=== PATIENT | male | born 1970 | race Caucasian/White ===

== ENCOUNTER 2017-03-27 14:55 | Inpatient (IN) | payer OTHER, MEDICAID ==
[2017-03-27] MEDS ORDERED: NICOTINE 21 MG/24 HR PATCH TD ONE (15:44)
[2017-03-27] MEDS ORDERED: LORazepam 1 MG TAB PO ONE (15:44)
--- NOTE | 2017-03-27 15:51 | EDPHY ---
H & P Smoking Status: Light smoker Time Seen by Provider: 03/27/17 15:35 HPI/ROS: CHIEF COMPLAINT: Suicidal ideation HISTORY OF PRESENT ILLNESS: History of bipolar disorder, arrested last night for DUI, spent the night in detention. No Klonopin her Latuda for the past 2 days. Patient has a previous suicide attempt which he relates as trying to "eat some hemlock. "Patient is brought in by friend today with suicidal ideation which is severe and present for the past 24 hours. He says he wants to overdose on his Klonopin or try "cutting my femoral artery. " Admits to a shot of alcohol today but no drugs. Denies overdose today. REVIEW OF SYSTEMS: Eye: no change in vision ENT: no sore throat Cardiac: no chest pain or syncope Pulmonary: no cough or SOB Abdomen: no vomiting, diarrhea, abdominal pain Musculoskeletal: no back pain Skin: no rash Neuro: no headache Constitutional: no fever : no urinary symptoms A comprehensive 10 point review of systems is otherwise negative aside from elements mentioned in the history of present illness. PAST MEDICAL HISTORY: Includes hypothyroid, asthma, hypertension, hyperlipidemia, hernia repair. Bipolar disorder. Social history: 1 shot of alcohol, tobacco smoker. General Appearance: Alert and conversant, cooperative. Eyes: No scleral icterus. ENT, Mouth: Normal mucous membranes. Respiratory: Normal respiratory effort, breath sounds equal, lungs are clear to auscultation. Cardiovascular: Regular rate and rhythm. Gastrointestinal: Abdomen is soft and non tender. Neurological: Alert and oriented x3. Normally conversant. Face symmetric, normal movement and sensation in all extremities. Skin: No lacerations or abrasions. Musculoskeletal: No peripheral edema and no joint swelling. Psychiatric: Not agitated. Emergency Department course/MDM: Patient is placed on a mental health hold by myself for active suicidal ideation with a plan. Signed out to Lee with plan for psychiatric evaluation; medically cleared. ( Luke Rg) Constitutional: Initial Vital Signs Temperature (C) 37 C 03/27/17 14:58 Heart Rate 104 H 03/27/17 14:58 Respiratory Rate 20 03/27/17 14:58 Blood Pressure 165/108 H 03/27/17 14:58 O2 Sat (%) 94 03/27/17 14:58 O2 Delivery Mode CPAP Allergies/Adverse Reactions: No Known Allergies Allergy (Verified 03/27/17 14:58) Home Medications: Medication Instructions Recorded Albuterol [Proventil Inhaler HFA 1 - 2 puffs IH Q4H PRN 06/07/15 (*)] Ipratropium/Albuterol [Combivent 1 inh IH BID 06/07/15 Respimat Inhal [place](*)] Levothyroxine [Synthroid 200 mcg 200 mcg PO DAILY06 06/07/15 (*)] Levothyroxine [Synthroid 75 mcg 75 mcg PO DAILY06 06/07/15 (*)] Lurasidone HCl [Latuda] 20 mg PO HS 06/07/15 clonazePAM [klonoPIN (*)] 1 mg PO HS 06/07/15 oxyCODONE HCL [Oxycodone HCl] 5 - 15 mg PO Q4 PRN 06/07/15 Atenolol 10mg 10 mg PO DAILY 06/08/15 Medical Decision Making ED Course/Re-evaluation: 2230 care assumed by me from Dr. Rg pending mental health evaluation. 0700 patient signed out to Dr. Camarillo pending mental health evaluation. No issues during my care of this patient overnight. (Drew Howard) Differential Diagnosis: Differential diagnosis considered for depression including functional and major depression, situational depression, medication side effect, drugs and alcohol abuse. (Luke Rg) Other Provider: 11am - Notified that patient has been accepted to 3 inpatient psych. (Laurent Camarillo) - Data Points Laboratory Results: Laboratory Results 03/27/17 16:00 03/27/17 16:00 Medications Given: Discontinued Medications Clonazepam (Klonopin) 1 mg PO EDNOW ONE Stop: 03/27/17 19:52 Last Admin: 03/27/17 20:28 Dose: 1 mg Lorazepam (Ativan) 1 mg PO EDNOW ONE Stop: 03/27/17 15:45 Last Admin: 03/27/17 16:04 Dose: 1 mg Lorazepam (Ativan) 1 mg PO EDNOW ONE Stop: 03/28/17 10:05 Last Admin: 03/28/17 10:07 Dose: 1 mg Lurasidone HCl (Latuda) 20 mg PO EDNOW ONE Stop: 03/27/17 19:52 Last Admin: 03/27/17 20:28 Dose: 20 mg Nicotine (Nicoderm Cq) 21 mg TD EDNOW ONE Stop: 03/27/17 15:45 Last Admin: 03/27/17 16:04 Dose: 21 mg Nicotine (Nicoderm Cq) 21 mg TD EDNOW ONE Stop: 03/28/17 06:19 Last Admin: 03/28/17 06:50 Dose: 21 mg Departure - Departure Disposition: [facility] IP Clinical Impression: Bipolar disorder Qualifiers: Active/Remission status: currently active Current bipolar episode type: depressed Current episode severity: severe Psychotic features: without psychotic features Qualified Code(s): F31.4 - Bipolar disorder, current episode depressed, severe, without psychotic features Condition: Good Instructions: Bipolar Disorder (ED) Referrals: Mike Walden MD [Primary Care Provider] - As per Instructions
[2017-03-27 16:16] LABS: % IMMATURE GRANULYOCYTES 0.1 % (0.0-1.1); ABSOLUTE IMMATURE GRANULOCYTES 0.01 10^3/uL (0.00-0.10); ADD DIFF? NO; ADD MORPH? NO; ADD SCAN? NO; ATYPICAL LYMPHOCYTE FLAG 0 (0-99); FRAGMENT RBC FLAG 0 (0-99); HEMATOCRIT 49.8 % (40.0-51.0); LEFT SHIFT FLG 0 (0-99); LIPEMIA HEMOLYSIS FLAG 90 (0-99); MEAN CELL HEMOGLOBIN 29.7 pg (27.9-34.1); MEAN CELL HEMOGLOBIN CONCENTR. 34.1 g/dL (32.4-36.7); MEAN CELL VOLUME 87.1 fL (81.5-99.8); PLATELET CLUMPS FLAG 0 (0-99); PLATELET COUNT 329 10^3/uL (150-400); RED BLOOD CELL COUNT 5.72 10^6/uL (4.40-6.38); RED CELL DISTRIBUTION WIDTH 12.7 % (11.5-15.2)
[2017-03-27 16:26] LABS: ANION GAP 15 mEq/L (8-16); CALCIUM 10.1 mg/dL (8.5-10.4); CARBON DIOXIDE 23 mEq/l (22-31); CHLORIDE 104 mEq/L (97-110); CREATININE 0.8 mg/dL (0.7-1.3); ETHANOL SERUM < 10 mg/dL (0-10); GLOMERULAR FILTRATION RATE > 60; GLUCOSE 73 mg/dL (70-100); POTASSIUM 4.5 mEq/L (3.5-5.2); SALICYLATE < 1.0 mg/dL (2.0-20.0); SODIUM 142 mEq/L (134-144)
[2017-03-27] MEDS ORDERED: clonazePAM 1 MG TAB PO ONE (19:51)
[2017-03-27] MEDS ORDERED: LURASIDONE HCL 20 MG TAB PO ONE (19:51)
[2017-03-28] MEDS ORDERED: NICOTINE 21 MG/24 HR PATCH TD ONE (06:18)
[2017-03-28] MEDS ORDERED: LORazepam 1 MG TAB PO ONE (10:04)
[2017-03-28] MEDS ORDERED: OXYCODONE/APAP 5/325 TAB ONE (14:03)
[2017-03-28] MEDS ORDERED: OXYCODONE/APAP 5/325 TAB PO ONE (14:05)
[2017-03-28] MEDS ORDERED: ALBUTEROL 200 PUFFS/18 GM MDI IH PRN (16:15)
[2017-03-28] MEDS ORDERED: MAG HYDROX/AL HYDROX/SIMETH 30 ML UDCUP PO PRN (16:30)
[2017-03-28] MEDS ORDERED: MAGNESIUM HYDROXIDE 30 ML UDCUP PO PRN (16:30)
[2017-03-28] MEDS ORDERED: ACETAMINOPHEN 325 MG TAB PO PRN (16:30)
[2017-03-28] MEDS ORDERED: OLANZapine DISINTEGR 10 MG TAB PO PRN (16:30)
[2017-03-28] MEDS ORDERED: ALBUTEROL 60 PUFFS/8 GM MDI IH PRN (16:31)
[2017-03-28] MEDS: FLUTICASONE/SALMETER 250/50MCG DISKUS IH SCH ×3 (17:21→18:48)
--- NOTE | 2017-03-28 17:28 | BCON ---
[f rep st] BEHAVIORAL HEALTH CONSULTATION INTERNAL MEDICINE CONSULTATION DATE OF CONSULTATION: 03/28/2017 REFERRING PHYSICIAN: Jonathan Perales MD REASON FOR REFERRAL: Medical clearance for inpatient behavioral health stay. HISTORY OF PRESENT ILLNESS: This patient came to the [facility] Emergency Department yesterday. He had been arrested the previous night for DUI and spent the night in [facility], and he had suicidal ideation. He was evaluated by the mental health team and admitted for further psychiatric care. Currently, he complains of back pain and reports that he takes occasional oxycodone for it. He also asks about the use of mono-atomic gold, which he says repairs his DNA. Otherwise, he is without any acute complaints. PAST MEDICAL HISTORY: 1. Asthma. 2. Hypothyroidism. 3. Hypertension. 4. Dyslipidemia. 5. Bipolar disorder versus schizoaffective disorder. 6. Obstructive sleep apnea. PAST SURGICAL HISTORY: He has had a hernia repair. MEDICATIONS: 1. Lurasidone. 2. Asenapine. 3. Fluticasone/salmeterol inhaler. 4. Clonazepam. SOCIAL HISTORY: He has a common-law of 20 years. [place]. He is a tobacco smoker. He is disabled for mental health reasons. He uses occasional alcohol and occasional stimulants. FAMILY HISTORY: Noncontributory. REVIEW OF SYSTEMS: He reports that his breathing is okay, but he says he has not used his fluticasone/salmeterol in several days, and would like that to be reinstated. He has back pain as described above. He denies cough or dyspnea currently. He denies chest pain or palpitations. He denies nausea, vomiting, constipation, or diarrhea. He denies weight gain or weight loss. He denies urinary frequency or dysuria. Otherwise, a 10-point review of systems is negative. PHYSICAL EXAM: VITAL SIGNS: Blood pressure is 141/93, heart rate is 98, respiratory rate is 14, oxygen saturation is 93% on room air. Temperature is 36.6 degrees centigrade. His weight is 132 kg, for a body mass index of 40. GENERAL: This is an obese man in bed, wearing no shirt, cooperative and in no acute distress. HEENT: Extraocular movements are intact. Pupils are equal, round, reactive to light. Mucous membranes are moist. Dentition is in good condition. He has a mildly crowded airway, Mallampati class 2. NECK: Supple. HEART: There is a regular rate and rhythm with no murmurs, rubs, or gallops. LUNGS: Clear to auscultation bilaterally. ABDOMEN: Soft, nontender, nondistended with normoactive bowel sounds. EXTREMITIES: There is no cyanosis , clubbing, or edema. NEUROLOGIC: He is alert and oriented x3. Cranial nerves 2-12 are grossly intact. There is no focal weakness, and sensation is intact to light touch. LABORATORY STUDIES: Drawn in the emergency department, CBC was entirely within normal limits. Serum chemistry revealed normal renal function and electrolytes. Toxicology screen in the serum was negative for salicylates, acetaminophen or ethyl alcohol; and in the urine was non-negative for amphetamines, but otherwise negative for substances of abuse. ASSESSMENT/RECOMMENDATIONS: 1. Mental health issues, pending further evaluation and management per Psychiatry and the mental health team. 2. Morbid obesity. Consider avoiding medications that would potentially worsen weight gain though psychosocial stabilization is the first priority at present. 3. Asthma. I have ordered fluticasone/salmeterol inhaler as well as a p.r.n. albuterol. 4. Obstructive sleep apnea. He was advised to have his CPAP machine brought in by his . 5. Tobacco dependence syndrome. Encouraged smoking cessation. 6. Hypothyroidism. Given that he has had shr-xk-qabfzjo mental health issues and is on a large dose of levothyroxine, I have ordered a TSH to be added onto the labs that were drawn yesterday. 7. I see no medical contraindications to this patient's continued stay in the inpatient behavioral health unit or to any psychiatric medications or procedures. Thank you very much for including me in the care of this patient. Please do not hesitate to contact me or the hospitalist service should there be need for further medical evaluation. /[id number]/MODL MTDD
[2017-03-28] MEDS ORDERED: LURASIDONE HCL 20 MG TAB PO SCH (18:45)
[2017-03-28] MEDS: clonazePAM 1 MG TAB PO SCH (18:48)
[2017-03-28] MEDS ORDERED: IPRATROPIUM/ALBUTEROL 4GM MDI IH SCH (21:00)
[2017-03-29] MEDS: LEVOTHYROXINE 200 MCG TAB PO SCH (06:02)
[2017-03-29] MEDS: LEVOTHYROXINE 75 MCG TAB PO SCH (06:02)
[2017-03-29] MEDS: LORazepam 0.5 MG TAB PO PRN (07:42)
[2017-03-29] MEDS: FLUTICASONE/SALMETER 250/50MCG DISKUS IH SCH ×2 (07:42→19:09)
[2017-03-29] MEDS: NICOTINE POLACRILEX 2 MG GUM B PRN ×3 (07:42→12:27)
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
[2017-03-29] MEDS: clonazePAM 1 MG TAB PO SCH (19:06)
[2017-03-29] MEDS: LURASIDONE HCL 20 MG TAB PO SCH (19:07)
[2017-03-30] MEDS: LEVOTHYROXINE 200 MCG TAB PO SCH (05:54)
[2017-03-30] MEDS: LEVOTHYROXINE 75 MCG TAB PO SCH (05:55)
[2017-03-30] MEDS: NICOTINE POLACRILEX 2 MG GUM B PRN ×5 (07:11→19:25)
[2017-03-30] MEDS: FLUTICASONE/SALMETER 250/50MCG DISKUS IH SCH ×2 (10:28→19:43)
[2017-03-30] MEDS: LORazepam 0.5 MG TAB PO PRN (10:28)
--- NOTE | 2017-03-30 14:25 | SOAPPROG ---
SOAP Progress Note Assessment/Plan: Assessment: 46 yo man who had thoughts of suicide after getting arrested for DUI. His alcohol use is likely increasing his sxs of depression. He was also pos for amphetamine in ED without any explanation for reason. 03/30/17 14:21 Plan: 1. Dr. Perales has increased Latuda dose to 40mg daily. 2. Patient understands the effect of alcohol on his mood and mental state, but is not willing to quit drinking. Suggest he talk to [facility] or other therapist to discuss how he manages stress and do some motivational interviewing around his substance use as well as how he takes care of his physical and emotional health. 3. Recommend referral to psych MD as well as therapist, including [facility] if patient is willing to see one. Group therapy might also be helpful as patient is lacking social support. 4. Make patient voluntary. Subjective: Met with patient, reviewed chart and discussed with staff. Patient presents pleasant, but minimally engaged in treatment. He has been asleep most of AM, going to dining room for meals, but not attending groups. He reports anxiety is 4/10 and depression is 5/10, but denies any thoughts, plan or intent to hurt himself or anyone else. He denies any AH/VH, paranoia or delusions. Objective: Vital Signs Temp Pulse Resp BP Pulse Ox 36.3 C 87 14 136/94 H 96 03/30/17 06:00 03/30/17 06:00 03/30/17 06:00 03/30/17 06:00 03/30/17 06:00 MSE: Obese, wearing ripped T-shirt and jeans, pleasant and cooperative. Affect: Euthymic Mood: "OK" TP: Linear TC: Denies any SI/HI, no AH/VH. Insight/ Judgment: Poor - Time Spent With Patient Time Spent With Patient: 15" - Pending Discharge Pending Discharge Within 24 Hours: No Pending Discharge Within 48 Hours: No ICD10 Worksheet Patient Problems: Problems Problem Status Onset Alcohol use disorder, severe, dependence Acute Schizoaffective disorder Acute Postoperative hypoxia Acute - ICD10 Problem Qualifiers (1) Schizoaffective disorder Qualifiers: Schizoaffective disorder type: depressive Qualified Code(s): F25.1 - Schizoaffective disorder, depressive type (2) Alcohol use disorder, severe, dependence
[2017-03-30] MEDS: clonazePAM 1 MG TAB PO SCH (19:42)
[2017-03-30] MEDS: LURASIDONE HCL 20 MG TAB PO SCH (19:43)
[2017-03-31] MEDS: LEVOTHYROXINE 75 MCG TAB PO SCH (06:08)
[2017-03-31] MEDS: LEVOTHYROXINE 200 MCG TAB PO SCH (06:08)
[2017-03-31] MEDS: NICOTINE POLACRILEX 2 MG GUM B PRN ×5 (07:47→18:19)
[2017-03-31] MEDS: FLUTICASONE/SALMETER 250/50MCG DISKUS IH SCH ×2 (08:34→19:11)
[2017-03-31] MEDS: LORazepam 0.5 MG TAB PO PRN ×2 (08:34→16:15)
--- NOTE | 2017-03-31 13:21 | SOAPPROG ---
SOAP Progress Note Assessment/Plan: Assessment: 46 yo man who had thoughts of suicide after getting arrested for DUI. His alcohol use is likely increasing his sxs of depression. He was also pos for amphetamine in ED without any explanation for reason. 03/30/17 14:21 Plan: 1. Dr. Perales has increased Latuda dose to 40mg daily. 2. Patient understands the effect of alcohol on his mood and mental state, but is not willing to quit drinking. Suggest he talk to [facility] or other therapist to discuss how he manages stress and do some motivational interviewing around his substance use as well as how he takes care of his physical and emotional health. 3. Recommend referral to psych MD as well as therapist, including [facility] if patient is willing to see one. Group therapy might also be helpful as patient is lacking social support. 4. Make patient voluntary. 03/31/17 13:15 Plan: 1. CCM - no SE's from increased dose of Latuda 2. Patient able to contract for safety. Denies any plan or intent to hurt himself, but still thinks he has no responsibility for driving drunk even though his breathylizer was .160, he says he was having "a bipolar episode." Subjective: Met with patient and discussed with staff. Patient is sitting up in bed wearing his CPAP. He says he feels "better" today and has a "good" mood. When MD asks about his suicidal thoughts, he denies having any since admission to hospital. However, he denies any responsibility for driving drunk and blames police for "taking away my license" b/c patient refused road side blood test. He says his breathylizer was .160 and yet doesn't recognize that he broke the law. He says it was a "bipolar episode" and is very angry about the consequences. He says he won't be able to "[place] the [place]" to take "a pee test" whenever the court requires it, even though he [facility] access [facility]. He says "things will not be alright" if he "can't fulfill their bullshit," but patient denies he has any plan or intent to hurt himself. Objective: Vital Signs Temp Pulse Resp BP Pulse Ox 36.5 C 84 16 137/86 H 95 03/31/17 06:00 03/31/17 06:00 03/31/17 06:00 03/31/17 06:00 03/31/17 06:00 MSE: Obese, wearing CPAP initially, sitting up in bed. Affect: Irritable Mood : "OK" TP: Illogical and perseverative TC: Denies any AH/VH, denies SI/HI Insight/Judgment: Poor - Time Spent With Patient Time Spent With Patient: 20" - Pending Discharge Pending Discharge Within 24 Hours: No Pending Discharge Within 48 Hours: No ICD10 Worksheet Patient Problems: Problems Problem Status Onset Alcohol use disorder, severe, dependence Acute Schizoaffective disorder Acute Postoperative hypoxia Acute - ICD10 Problem Qualifiers (1) Schizoaffective disorder Qualifiers: Schizoaffective disorder type: depressive Qualified Code(s): F25.1 - Schizoaffective disorder, depressive type (2) Alcohol use disorder, severe, dependence
[2017-03-31] MEDS: LURASIDONE HCL 20 MG TAB PO SCH (19:11)
[2017-03-31] MEDS: clonazePAM 1 MG TAB PO SCH (19:12)
[2017-04-01] MEDS: OLANZapine DISINTEGR 10 MG TAB PO PRN ×2 (05:49→17:29)
[2017-04-01] MEDS: LORazepam 0.5 MG TAB PO PRN ×3 (05:50→17:59)
[2017-04-01] MEDS: LEVOTHYROXINE 75 MCG TAB PO SCH (05:50)
[2017-04-01] MEDS: LEVOTHYROXINE 200 MCG TAB PO SCH (05:50)
[2017-04-01] MEDS: NICOTINE POLACRILEX 2 MG GUM B PRN ×4 (08:57→19:05)
[2017-04-01] MEDS: FLUTICASONE/SALMETER 250/50MCG DISKUS IH SCH ×2 (08:57→19:05)
--- NOTE | 2017-04-01 13:33 | SOAPPROG ---
SOAP Progress Note Assessment/Plan: Assessment: Plan: 04/01/17 13:32 Mood appears to be stable. SI persists contextually. Will CCM, continue d/c planning. Subjective: Pt seen, discussed with staff. Reports feeling "a little better." In bed with CPAP on at 1100. He states he still feels hopeless re: social stressors. Remains suicidal in context of "having no options." Compliant with meds but not most groups. No behavioral issues noted over WE. Objective: Vital Signs Temp Pulse Resp BP Pulse Ox 36.5 C 88 16 139/82 H 94 04/01/17 06:00 04/01/17 06:00 04/01/17 06:00 04/01/17 06:00 04/01/17 06:00 MSE: Calm, coop. Affect is euthymic, stable, approp. Mood is "better." TP linear. TC reveals some grandiose and persecutory thoughts. SI persists though "not while I'm here." - Time Spent With Patient Time Spent With Patient: 25" ICD10 Worksheet Patient Problems: Problems Problem Status Onset Alcohol use disorder, severe, dependence Acute Schizoaffective disorder Acute Postoperative hypoxia Acute
--- NOTE | 2017-04-01 16:01 | SOAPPROG ---
SOAP Progress Note Assessment/Plan: Assessment: Hypothyroidism, with suppressed TSH. Changed levothyroxine from 275 mcg QD to 250 mcg QD. Advise follow-up testing in 4 - 6 weeks. may need further taper. Plan: 04/01/17 16:00 Subjective: Lab review Objective: Vital Signs Temp Pulse Resp BP Pulse Ox 36.5 C 88 16 139/82 H 94 04/01/17 06:00 04/01/17 06:00 04/01/17 06:00 04/01/17 06:00 04/01/17 06:00 ICD10 Worksheet Patient Problems: Problems Problem Status Onset Alcohol use disorder, severe, dependence Acute Schizoaffective disorder Acute Postoperative hypoxia Acute
[2017-04-01] MEDS: LURASIDONE HCL 20 MG TAB PO SCH (18:09)
[2017-04-01] MEDS: clonazePAM 1 MG TAB PO SCH (19:05)
[2017-04-02] MEDS: LEVOTHYROXINE 75 MCG TAB PO SCH (05:57)
[2017-04-02] MEDS: LEVOTHYROXINE 200 MCG TAB PO SCH (06:08)
[2017-04-02] MEDS: LORazepam 0.5 MG TAB PO PRN ×2 (06:44→17:23)
[2017-04-02] MEDS: NICOTINE POLACRILEX 2 MG GUM B PRN (07:47)
[2017-04-02] MEDS: FLUTICASONE/SALMETER 250/50MCG DISKUS IH SCH ×2 (07:47→19:47)
[2017-04-02] MEDS: NICOTINE 21 MG/24 HR PATCH TD PRN (08:31)
[2017-04-02] MEDS: [UNRECOGNIZED DRUG - OTHER] PO SCH (14:51)
--- NOTE | 2017-04-02 16:16 | SOAPPROG ---
SOAP Progress Note Assessment/Plan: Assessment: Plan: 04/01/17 13:32 Mood appears to be stable. SI persists contextually. Will CCM, continue d/c planning. 04/02/17 16:16 Continued improvement. CCM. Subjective: Pt seen, discussed with staff. Reports feeling "pretty good." Appears upbeat, much more positive. Friendly and interactive. Asks to be able to shave. Disavows SI today. Compliant with meds. Slept well. Objective: Vital Signs Temp Pulse Resp BP Pulse Ox 36.4 C 85 16 121/85 H 94 04/02/17 06:00 04/02/17 06:00 04/02/17 06:00 04/02/17 06:00 04/02/17 06:00 MSE: Calm, coop. Affect is much brighter, stable, approp. Mood is "pretty good." TP linear. TC reveals some ongoing paranoid and magical thinking. Denies current SI. - Time Spent With Patient Time Spent With Patient: 15" ICD10 Worksheet Patient Problems: Problems Problem Status Onset Alcohol use disorder, severe, dependence Acute Schizoaffective disorder Acute Postoperative hypoxia Acute
[2017-04-02] MEDS: LURASIDONE HCL 20 MG TAB PO SCH (17:29)
[2017-04-02] MEDS: clonazePAM 1 MG TAB PO SCH (19:47)
[2017-04-03] MEDS: LORazepam 0.5 MG TAB PO PRN ×3 (02:32→19:07)
[2017-04-03] MEDS: NICOTINE POLACRILEX 2 MG GUM B PRN (04:56)
[2017-04-03] MEDS: LEVOTHYROXINE 75 MCG TAB PO SCH (04:56)
[2017-04-03] MEDS: LEVOTHYROXINE 200 MCG TAB PO SCH (04:56)
[2017-04-03] MEDS: NICOTINE 21 MG/24 HR PATCH TD PRN (08:31)
[2017-04-03] MEDS: FLUTICASONE/SALMETER 250/50MCG DISKUS IH SCH ×2 (08:31→21:46)
--- NOTE | 2017-04-03 13:36 | SOAPPROG ---
SOAP Progress Note Assessment/Plan: Assessment: * Hypothyroidism, with suppressed TSH. Changed levothyroxine from 275 mcg QD to 250 mcg QD. Advise follow-up testing in 4 - 6 weeks. may need further taper. * Tinea versicolor. reports prior treatment with Lotrimin. Will order clotrimazole cream. 04/03/17 13:35 Subjective: Rash on R arm and chest. Reports h/o tinea versicolor. Objective: Vital Signs Temp Pulse Resp BP Pulse Ox 36.9 C 85 16 138/86 H 96 04/03/17 06:00 04/03/17 06:00 04/03/17 06:00 04/03/17 06:00 04/03/17 06:00 Physical Exam - Physical Exam General Appearance: WD/WN, alert, no apparent distress, obese Skin: other (Slightly erythematous rash with fine flakey surface on R arm antecubital fossa and patches X 2 on chest) ICD10 Worksheet Patient Problems: Problems Problem Status Onset Alcohol use disorder, severe, dependence Acute Schizoaffective disorder Acute Postoperative hypoxia Acute
[2017-04-03] MEDS: [UNRECOGNIZED DRUG - OTHER] PO SCH (14:26)
[2017-04-03] MEDS: CLOTRIMAZOLE 1% 15 GM CRTUBE TP SCH ×2 (16:13→21:47)
[2017-04-03] MEDS: LURASIDONE HCL 20 MG TAB PO SCH (21:46)
[2017-04-03] MEDS: clonazePAM 1 MG TAB PO SCH (21:46)
[2017-04-04] MEDS: LEVOTHYROXINE 75 MCG TAB PO SCH (06:17)
[2017-04-04] MEDS: LEVOTHYROXINE 200 MCG TAB PO SCH (06:17)
[2017-04-04] MEDS: NICOTINE POLACRILEX 2 MG GUM B PRN (06:42)
[2017-04-04] MEDS: LORazepam 0.5 MG TAB PO PRN ×2 (07:44→14:06)
[2017-04-04] MEDS: NICOTINE 21 MG/24 HR PATCH TD PRN (08:23)
--- NOTE | 2017-04-04 09:13 | SOAPPROG ---
SOAP Progress Note Assessment/Plan: Assessment: Plan: 04/01/17 13:32 Mood appears to be stable. SI persists contextually. Will CCM, continue d/c planning. 04/02/17 16:16 Continued improvement. CCM. 04/04/17 09:15 Continued mix of depressed mood, primitive character issues. Await evaluation from Dr. Joy. Unclear whether pt is able to go to [facility] after d/c or not. Subjective: Pt seen, discussed with staff. Reports feeling anxious about meeting with mother. Family meeting held with pt, myself, his mother and CC. Pt agitated and hostile towards mother, accusing her of not caring about him or helping him. We discussed possible treatment options after d/c including residential. I discussed the case with Dr. Joy who states he will see pt tomorrow. Pt is looking forward to this as they have a previous relationship. Objective: Vital Signs Temp Pulse Resp BP Pulse Ox 36.3 C 83 16 142/83 H 95 04/04/17 06:00 04/04/17 06:00 04/04/17 06:00 04/04/17 06:00 04/04/17 06:00 MSE: Agitated, irritable. Pressured at times. Affect is irritable. Mood is "bad." TP generally linear though perseverative. TC reveals frequent reference to being persecuted by others. States, "That is the only thing that matters. My life is in danger and no one cares." Repeats suicidal threats in specific context of having to go to correction or do urinalyses. O/w he states he would not harm himself. - Time Spent With Patient Time Spent With Patient: 35" ICD10 Worksheet Patient Problems: Problems Problem Status Onset Alcohol use disorder, severe, dependence Acute Schizoaffective disorder Acute Postoperative hypoxia Acute
[2017-04-04] MEDS: [UNRECOGNIZED DRUG - OTHER] PO SCH (14:07)
[2017-04-04] MEDS: CLOTRIMAZOLE 1% 15 GM CRTUBE TP SCH ×2 (14:49→20:47)
[2017-04-04] MEDS: FLUTICASONE/SALMETER 250/50MCG DISKUS IH SCH ×2 (14:50→20:24)
--- NOTE | 2017-04-04 19:58 | SOAPPROG ---
SOAP Progress Note Assessment/Plan: Assessment: Plan: 04/01/17 13:32 Mood appears to be stable. SI persists contextually. Will CCM, continue d/c planning. 04/02/17 16:16 Continued improvement. CCM. 04/04/17 09:15 Continued mix of depressed mood, primitive character issues. Await evaluation from Dr. Joy. Unclear whether pt is able to go to [facility] after d/c or not. 04/04/17 19:57 Calmer today. Await input from Dr. Joy. Subjective: Pt seen, discussed with staff. Reports feeling "OK" today. Less irritable. Engages with me, states he is looking forward to talking with Dr. Jyo later today. CC informs team that family will pay for one month at [facility]. Objective: Vital Signs Temp Pulse Resp BP Pulse Ox 36.3 C 83 16 142/83 H 95 04/04/17 06:00 04/04/17 06:00 04/04/17 06:00 04/04/17 06:00 04/04/17 06:00 MSE: Calm, coop. Affect is constricted, stable, approp. Mood is "OK." TP linear. TC reveals continued fear that he will be killed by unknown persons if he leaves the hospital. - Time Spent With Patient Time Spent With Patient: 15" ICD10 Worksheet Patient Problems: Problems Problem Status Onset Alcohol use disorder, severe, dependence Acute Schizoaffective disorder Acute Postoperative hypoxia Acute
[2017-04-04] MEDS: LURASIDONE HCL 20 MG TAB PO SCH (20:24)
[2017-04-04] MEDS: clonazePAM 1 MG TAB PO SCH (20:24)
[2017-04-05] MEDS: LEVOTHYROXINE 75 MCG TAB PO SCH (05:39)
[2017-04-05] MEDS: LEVOTHYROXINE 200 MCG TAB PO SCH (05:41)
[2017-04-05] MEDS: FLUTICASONE/SALMETER 250/50MCG DISKUS IH SCH ×2 (05:44→20:59)
[2017-04-05] MEDS: [UNRECOGNIZED DRUG - OTHER] PO SCH (08:19)
[2017-04-05] MEDS: NICOTINE 21 MG/24 HR PATCH TD PRN (08:19)
[2017-04-05] MEDS: CLOTRIMAZOLE 1% 15 GM CRTUBE TP SCH ×2 (08:20→21:05)
--- NOTE | 2017-04-05 14:26 | SOAPPROG ---
SOAP Progress Note Assessment/Plan: Assessment: Plan: 04/01/17 13:32 Mood appears to be stable. SI persists contextually. Will CCM, continue d/c planning. 04/02/17 16:16 Continued improvement. CCM. 04/04/17 09:15 Continued mix of depressed mood, primitive character issues. Await evaluation from Dr. Joy. Unclear whether pt is able to go to [facility] after d/c or not. 04/04/17 19:57 Calmer today. Await input from Dr. Joy. 04/05/17 14:28 Stabilizing. CCM. Subjective: Pt seen, discussed with staff. Reports feeling "pretty good." Upbeat about contact with Dr. Joy. States he is willing to go to . Dr. Joy questions need for primary SA treatment first. He states he will review past records and confer with team. Pt remains rather adolescent, regressed. 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 Oppositional with staff at times. Objective: Vital Signs Temp Pulse Resp BP Pulse Ox 36.3 C 80 14 103/66 97 04/05/17 06:00 04/05/17 06:00 04/05/17 06:00 04/05/17 06:00 04/05/17 06:00 MSE: Calm, though easily riled. Affect is euthymic, stable, approp. Mood is "OK." TP linear. TC reveals continued paranoid ideation. Denies current SI. - Time Spent With Patient Time Spent With Patient: 15" ICD10 Worksheet Patient Problems: Problems Problem Status Onset Alcohol use disorder, severe, dependence Acute Schizoaffective disorder Acute Postoperative hypoxia Acute
[2017-04-05] MEDS: LURASIDONE HCL 20 MG TAB PO SCH (20:59)
[2017-04-05] MEDS: clonazePAM 1 MG TAB PO SCH (20:59)
[2017-04-05] MEDS: LORazepam 0.5 MG TAB PO PRN (22:23)
[2017-04-06] MEDS: LEVOTHYROXINE 200 MCG TAB PO SCH (06:02)
[2017-04-06] MEDS: LEVOTHYROXINE 75 MCG TAB PO SCH (06:02)
[2017-04-06] MEDS: LORazepam 0.5 MG TAB PO PRN ×2 (09:00→15:11)
[2017-04-06] MEDS: CLOTRIMAZOLE 1% 15 GM CRTUBE TP SCH ×2 (10:41→20:17)
[2017-04-06] MEDS: FLUTICASONE/SALMETER 250/50MCG DISKUS IH SCH ×2 (10:44→20:15)
[2017-04-06] MEDS: [UNRECOGNIZED DRUG - OTHER] PO SCH (10:44)
--- NOTE | 2017-04-06 12:24 | SOAPPROG ---
SOAP Progress Note Assessment/Plan: Assessment: Plan: 04/01/17 13:32 Mood appears to be stable. SI persists contextually. Will [facility], continue d/c planning. 04/02/17 16:16 Continued improvement. CCM. 04/04/17 09:15 Continued mix of depressed mood, primitive character issues. Await evaluation from Dr. Joy. Unclear whether pt is able to go to after d/c or not. 04/04/17 19:57 Calmer today. Await input from Dr. Joy. 04/05/17 14:28 Stabilizing. CCM. 04/06/17 12:22 Approaching baseline. Will CCM. Await work from . Subjective: Pt seen, discussed with staff. Calm and cooperative, though noted to get upset with another pt when discussing denominational. We discussed his current treatment plan and possible transfer to on Saturday. He is motivated for this. He is resistant to going to primary SA treatment. Refuses to allow me to talk to his sister as he states, "She just wants to take credit for taking care of me. She doesn't care." Objective: Vital Signs Temp Pulse Resp BP Pulse Ox 36.3 C 84 14 128/83 H 94 04/05/17 06:00 04/06/17 06:00 04/06/17 06:00 04/06/17 06:00 04/06/17 06:00 MSE: Calm, coop. Affect is constricted, stable, approp. Mood is "pretty good. " TP linear. TC reveals continued paranoia, IOR's. Denies current SI. - Time Spent With Patient Time Spent With Patient: 15" ICD10 Worksheet Patient Problems: Problems Problem Status Onset Alcohol use disorder, severe, dependence Acute Schizoaffective disorder Acute Postoperative hypoxia Acute
[2017-04-06] MEDS: LURASIDONE HCL 20 MG TAB PO SCH (18:02)
[2017-04-06] MEDS: clonazePAM 1 MG TAB PO SCH (20:15)
[2017-04-07] MEDS: LEVOTHYROXINE 75 MCG TAB PO SCH (05:47)
[2017-04-07] MEDS: LORazepam 0.5 MG TAB PO PRN ×3 (05:47→21:10)
[2017-04-07] MEDS: LEVOTHYROXINE 200 MCG TAB PO SCH (05:48)
[2017-04-07] MEDS: NICOTINE POLACRILEX 2 MG GUM B PRN (05:59)
[2017-04-07] MEDS: FLUTICASONE/SALMETER 250/50MCG DISKUS IH SCH ×2 (08:32→20:40)
[2017-04-07] MEDS: CLOTRIMAZOLE 1% 15 GM CRTUBE TP SCH ×2 (08:32→20:43)
[2017-04-07] MEDS: NICOTINE 21 MG/24 HR PATCH TD PRN (08:33)
[2017-04-07] MEDS ORDERED: LORazepam 1 MG TAB PO ONE (11:42)
[2017-04-07] MEDS: [UNRECOGNIZED DRUG - OTHER] PO SCH ×2 (15:33→21:36)
--- NOTE | 2017-04-07 20:10 | SOAPPROG ---
SOAP Progress Note Assessment/Plan: Assessment: Plan: 04/01/17 13:32 Mood appears to be stable. SI persists contextually. Will [facility], continue d/c planning. 04/02/17 16:16 Continued improvement. CCM. 04/04/17 09:15 Continued mix of depressed mood, primitive character issues. Await evaluation from Dr. Joy. Unclear whether pt is able to go to [facility] after d/c or not. 04/04/17 19:57 Calmer today. Await input from Dr. Joy. 04/05/17 14:28 Stabilizing. CCM. 04/06/17 12:22 Approaching baseline. Will [facility]. Await work from [facility]. 04/07/17 20:11 Doing generally well. Got triggered by staff redirection and regressed. This is very likely an enduring pattern for him and not evidence of acute instability. Will [facility]. Await work from [facility] re: possible transition to . Subjective: Pt seen, discussed with staff. He was pleasant and cooperative, interacting appropriately with me earlier in the morning. About an hour later, he became enraged in group after being redirected for making inappropriate adolescent remarks about his only goal being to smoke a cigarette. He then stormed to his room, baracaded his door and required a show of force and verbal deescalation. He took PO Ativan and was able to calm himself. SHortly thereafter he was able to reenter the milieu and watch football with the group. Objective: Vital Signs Temp Pulse Resp BP Pulse Ox 36.4 C 86 16 138/76 H 94 04/07/17 06:00 04/07/17 06:00 04/07/17 06:00 04/07/17 06:00 04/07/17 06:00 MSE: Initially calm and coop. He was more paranoid, guarded, defensive when he was angry. Kept repeating that he was angry "because just like to set us up to have fun and then cut us down." Unable to explain what he meant by this. - Time Spent With Patient Time Spent With Patient: 25" ICD10 Worksheet Patient Problems: Problems Problem Status Onset Alcohol use disorder, severe, dependence Acute Schizoaffective disorder Acute Postoperative hypoxia Acute
[2017-04-07] MEDS: clonazePAM 1 MG TAB PO SCH (20:41)
[2017-04-07] MEDS: LURASIDONE HCL 20 MG TAB PO SCH (20:41)
[2017-04-08] MEDS: LEVOTHYROXINE 75 MCG TAB PO SCH (05:26)
[2017-04-08] MEDS: LEVOTHYROXINE 200 MCG TAB PO SCH (05:27)
[2017-04-08] MEDS: [UNRECOGNIZED DRUG - OTHER] PO SCH (08:19)
[2017-04-08] MEDS: FLUTICASONE/SALMETER 250/50MCG DISKUS IH SCH ×2 (08:19→20:09)
[2017-04-08] MEDS: LORazepam 0.5 MG TAB PO PRN ×3 (08:31→20:07)
[2017-04-08] MEDS: CLOTRIMAZOLE 1% 15 GM CRTUBE TP SCH ×2 (13:17→20:17)
[2017-04-08] MEDS: LURASIDONE HCL 20 MG TAB PO SCH (20:05)
[2017-04-08] MEDS: clonazePAM 1 MG TAB PO SCH (20:05)
[2017-04-09] MEDS: LEVOTHYROXINE 75 MCG TAB PO SCH (06:16)
[2017-04-09] MEDS: LEVOTHYROXINE 200 MCG TAB PO SCH (06:17)
[2017-04-09] MEDS: FLUTICASONE/SALMETER 250/50MCG DISKUS IH SCH ×2 (08:19→18:29)
[2017-04-09] MEDS: [UNRECOGNIZED DRUG - OTHER] PO SCH (08:22)
[2017-04-09] MEDS: NICOTINE 21 MG/24 HR PATCH TD PRN (08:33)
[2017-04-09] MEDS: CLOTRIMAZOLE 1% 15 GM CRTUBE TP SCH ×2 (09:06→18:33)
[2017-04-09] MEDS: LORazepam 0.5 MG TAB PO PRN ×3 (09:41→18:32)
--- NOTE | 2017-04-09 10:46 | SOAPPROG ---
MARKOS Progress Note Assessment/Plan: Assessment: Schizoaffective (v Schizophrenia) Doing reasonably well on current medications. No changes today. Plan: Work on outpatient placement. 04/09/17 10:51 Subjective: "So far, so good." "I could fast today." "I talk to myself from time to time." Reports he slept "okay" last night. 9.5 hours per sleep record. Using CPAP at night. Appetite, concentration, energy all good. Denies being bothered by internal stimuli today. Objective: Vital Signs Temp Pulse Resp BP Pulse Ox 36.9 C 89 12 137/87 H 93 04/09/17 06:00 04/09/17 06:00 04/09/17 06:00 04/09/17 06:00 04/09/17 06:00 Medications Generic Name Dose Route Start Last Admin Trade Name Freq PRN Reason Stop Dose Admin Clonazepam 1 mg 03/28/17 18:45 04/08/17 20:05 Klonopin PO 09/24/17 18:44 1 mg HS RAFAEL Clotrimazole 1 yun 04/03/17 13:45 04/09/17 09:06 Lotrimin 1% TP 05/03/17 13:44 Not Given BID RAFAEL Levothyroxine Sodium 200 mcg 03/29/17 06:00 04/09/17 06:17 Synthroid PO 09/25/17 05:59 200 mcg DAILY06 RAFAEL Levothyroxine Sodium 50 mcg 04/01/17 15:59 04/09/17 06:16 Synthroid PO 09/25/17 05:59 50 mcg DAILY06 RAFAEL Lurasidone HCl 40 mg 03/29/17 10:17 04/08/17 20:05 Latuda PO 09/24/17 18:44 40 mg HS RAFAEL Fluticasone/Salmeterol 1 puffs 03/28/17 15:45 04/09/17 08:19 Advair IH 09/24/17 15:44 1 puffs BID RAFAEL MSE Awake, alert, lying in bed but gets up to speak with me. Speech not pressured nor rapid this AM Linear thoughts, poverty of spontaneous thoughts Lacks insight, lacks judgment ICD10 Worksheet Patient Problems: Problems Problem Status Onset Alcohol use disorder, severe, dependence Acute Schizoaffective disorder Acute Postoperative hypoxia Acute
[2017-04-09] MEDS ORDERED: NON-FORMULARY NEW DRUG PO PRN ×3 (10:49→14:45)
[2017-04-09] MEDS ORDERED: [UNRECOGNIZED DRUG - OTHER] PO PRN (11:29)
[2017-04-09] MEDS: clonazePAM 1 MG TAB PO SCH (18:29)
[2017-04-09] MEDS: [UNRECOGNIZED DRUG - OTHER] PO PRN (18:29)
[2017-04-09] MEDS: LURASIDONE HCL 20 MG TAB PO SCH (18:29)
[2017-04-10] MEDS: LEVOTHYROXINE 200 MCG TAB PO SCH (05:45)
[2017-04-10] MEDS: LEVOTHYROXINE 75 MCG TAB PO SCH (05:46)
[2017-04-10 05:54] VITALS: TEMP 97.8
[2017-04-10] MEDS: [UNRECOGNIZED DRUG - OTHER] PO PRN ×3 (06:15→19:21)
[2017-04-10] MEDS: NICOTINE 21 MG/24 HR PATCH TD PRN (06:37)
[2017-04-10] MEDS: clonazePAM 1 MG TAB PO SCH (07:20)
[2017-04-10] MEDS: FLUTICASONE/SALMETER 250/50MCG DISKUS IH SCH ×2 (08:45→19:29)
[2017-04-10] MEDS: CLOTRIMAZOLE 1% 15 GM CRTUBE TP SCH ×2 (08:55→19:28)
[2017-04-10] MEDS: LORazepam 0.5 MG TAB PO PRN ×3 (09:52→19:24)
--- NOTE | 2017-04-10 14:09 | SOAPPROG ---
SOAP Progress Note Assessment/Plan: Assessment: Plan: 04/01/17 13:32 Mood appears to be stable. SI persists contextually. Will [facility]CM, continue d/c planning. 04/02/17 16:16 Continued improvement. CCM. 04/04/17 09:15 Continued mix of depressed mood, primitive character issues. Await evaluation from Dr. Joy. Unclear whether pt is able to go to [facility] after d/c or not. 04/04/17 19:57 Calmer today. Await input from Dr. Joy. 04/05/17 14:28 Stabilizing. CCM. 04/06/17 12:22 Approaching baseline. Will [facility]CM. Await work from [facility]. 04/07/17 20:11 Doing generally well. Got triggered by staff redirection and regressed. This is very likely an enduring pattern for him and not evidence of acute instability. Will [facility]. Await work from [facility] re: possible transition to . 04/10/17 14:09 Improved. CCM. Likely d/c tomorrow to . Subjective: Pt seen, discussed with staff. Pleasant and interactive. States he is looking forward to going to . Dr. Joy indicates that he will be able to go tomorrow morning. Pt remains compliant with meds. No further agitated behaviors. Objective: Vital Signs Temp Pulse Resp BP Pulse Ox 36.6 C 81 12 140/81 H 97 04/10/17 05:53 04/10/17 05:53 04/10/17 05:53 04/10/17 05:53 04/10/17 05:53 MSE: Calm, coop. Affect is euthymic, stable, approp. Mood is "good." TP linear. TC reveals no mention of paranoid delusions. Denies current SI. - Time Spent With Patient Time Spent With Patient: 15" ICD10 Worksheet Patient Problems: Problems Problem Status Onset Alcohol use disorder, severe, dependence Acute Schizoaffective disorder Acute Postoperative hypoxia Acute
[2017-04-10] MEDS: LURASIDONE HCL 20 MG TAB PO SCH (19:19)
[2017-04-11] MEDS: LEVOTHYROXINE 200 MCG TAB PO SCH (05:19)
[2017-04-11] MEDS: [UNRECOGNIZED DRUG - OTHER] PO PRN (05:19)
[2017-04-11] MEDS: LEVOTHYROXINE 75 MCG TAB PO SCH (05:19)
[2017-04-11] MEDS: NICOTINE POLACRILEX 2 MG GUM B PRN ×2 (05:27→06:20)
[2017-04-11] MEDS: LORazepam 0.5 MG TAB PO PRN ×2 (06:22→10:10)
[2017-04-11 07:57] VITALS: BP 132/90; PULSE 88; RESP 14; O2SAT 96
[2017-04-11] MEDS: FLUTICASONE/SALMETER 250/50MCG DISKUS IH SCH (08:31)
[2017-04-11] MEDS: CLOTRIMAZOLE 1% 15 GM CRTUBE TP SCH (08:33)
--- NOTE | 2017-04-11 18:52 | BDS ---
[f rep st] BEHAVIORAL HEALTH DISCHARGE SUMMARY REASON FOR ADMISSION: Patient is a 46-year-old male with a history of schizoaffective diso rder. He was admitted from the emergency department due to suicidal ideation. He had been recently released from senior care where he had stayed for a brief amount of time after having been charged with a DU I. He apparently had been pulled over for speeding, passed a Breathalyzer but refused a urinalysis, and was arrested for refusal. He was acting erratically and they had suspected that he was intoxicat ed in some way. After he was released, he stated he was going to kill himself and thus, he was broug ht directly to the emergency department. A full description of the events preceding admission can be found in his admission history dated 03/29/2017. ADMITTING DIAGNOSES: 1. Schizoaffective disorder, chronic with acute exacerbation. 2. Amphetamine use disorder, severity unknown. 3. Alcohol use disorder, severity unknown. 4. Chronic illness. 5. Legal problems. ADMITTING PHYSICAL EXAMINATION: Performed by Dr. Car Brewer reveals no acute physical findings. ADMISSION LABORATORY: CBC is normal. Serum chemistries are normal. TSH is low at 0.148. Urine terry g screen is positive for amphetamines. HOSPITAL COURSE: Patient [facility] on an M1 hold. He was initially calm, cooperative and participated actively in interviews. He is somewhat regresse d and adolescent in his interactions, however, and was prone to rather dramatic statements regarding how hopeless his life was and how suicidal he was, if he had to do any rehab or urinalyses or [facility]. He stated that if these were not the case, that he would be fine, but if he did have any conseq uences of his actions, that he would be imminently suicidal. He was in the milieu at a time when the re was a number of other younger males who were psychotic and/or manic. He seemed to take pleasure i n antagonizing them, specifically within their delusional systems and causing them to become more oscar tated. He was redirected from this on numerous occasions. He, himself, would become agitated on occ asions as well if challenged on his delusional systems. His delusions centered on being tormented by unknown persons in the community who wanted to kill him, typically by messing with his car. He was insistent that he was unsafe in the community, and that if he was released back to the community that he would kill himself before these other unknown persons could do it for him. Despite this, he was willing to participate in discharge planning, as long as [place] did [place] come in for drug tests or other required treatments. The patient voiced a desire to go to [facility] and Dr. Joy was notified. He evaluated t he patient on 2 occasions, and felt he was appropriate for their program. A discussion was held with the patient and his mother in a family meeting as to whether he would benefit from primary substance abuse treatment, to which he was very resistant. Dr. Joy had the same question, but it was fel t that he could benefit from stabilization of his psychiatric illness 1st, and then we could raise th e question later in regard to substance abuse treatment. This could likely be done as part of his co urt process on an outpatient basis. While in the hospital, we evaluated his overall medication regimen. He admitted to being noncomplian t with his previous medications due to not liking particular side effects of various psychotropic med icines. He stated that the Latuda he is taking currently was agreeable to him, and he was also agree able to increasing from 20 to 40 mg. This was done and he tolerated medications well with no side ef fects. The patient's hospital course was uncomplicated. He participated in most groups and though, due to h is antagonism, he had to be excused from some, was generally appropriate in his behaviors. He was co operative with all medications. CONDITION ON DISCHARGE: Stable. His affect was euthymic, stable and appropriate. He was cooperativ e with medications, was forward thinking and cheerful, and was happy to go to [facility]. DISCHARGE MEDICATIONS: Clonazepam 1 mg p.o. q.h.s., levothyroxine 275 mcg daily, albuterol inhaler 2 puffs q.4 hours p.r.n., Lotrimin cream as needed b.i.d., Advair inhaler 1 puff twice daily, and Latu da 40 mg q.h.s. DISCHARGE DIAGNOSES: 1. Schizoaffective disorder, bipolar type, chronic with acute exacerbation. 2. Amphetamine use disorder, moderate. 3. Alcohol use disorder, moderate. 4. Chronic illness. 5. Legal problems. DISPOSITION: Patient left the hospital with Dr. Joy to go to [facility]. LEGAL COURSE: Patient was converted to voluntary status at the expiration of his M1 hold. /[id number]/MODL
== END 2017-04-11 10:50 | DRG 885 ==
LOC: BBEH 03-28 14:28
PROVIDERS: ADMIT Psychiatry & Neurology Psychiatry; ATTEND Psychiatry & Neurology Psychiatry
DX: F25.0 Schizoaffective disorder, bipolar type (principal); F15.90 Other stimulant use, unspecified, uncomplicated; T43.506A Underdosing of unspecified antipsychotics and neuroleptics, initial encounter; E03.9 Hypothyroidism, unspecified; I10 Essential (primary) hypertension; E78.5 Hyperlipidemia, unspecified; G47.33 Obstructive sleep apnea (adult) (pediatric); F17.200 Nicotine dependence, unspecified, uncomplicated; E11.9 Type 2 diabetes mellitus without complications; E66.01 Morbid (severe) obesity due to excess calories; J44.9 Chronic obstructive pulmonary disease, unspecified; Z72.89 Other problems related to lifestyle
CPT/HCPCS: 80305; G0480

== ENCOUNTER 2017-11-12 12:54 | Observation (INO) | payer OTHER, MEDICAID ==
[2017-11-12] MEDS ORDERED: ONDANSETRON DISINTEGRATING 4 MG TAB PO ONE (13:03)
--- NOTE | 2017-11-12 13:48 | EDPHY ---
H & P Stated Complaint: gen abd pain N/V/D x 2 days ate sushi-also has new itchy rash throughout Time Seen by Provider: 11/12/17 13:48 HPI/ROS: CHIEF COMPLAINT: Food poisoning HISTORY OF PRESENT ILLNESS: This is a 47-year-old male with multiple medical problems including a history of reactive airways, and tobacco abuse and anxiety. He presents with nausea, vomiting, and diarrhea that has been present for almost 2 days now. He last had diarrhea shortly after he arrived in the emergency department. He states that his stool is pink and watery. He has diffuse abdominal pain. He has not been aware of fever. He was able to keep down a Klonopin this morning. He believes that this illness is related to sushi that he ate. REVIEW OF SYSTEMS: A ten point review of systems was performed and is negative with the exception of the items mentioned in the HPI. Past medical history: 1. Reactive airway disease 2. Hypothyroidism 3. Hyperlipidemia 4. Hypertension 5. Bipolar disease 6. Esophagitis 7. Anxiety 8. Sleep apnea 9. Obesity Past surgical history: 1. Hernia repair 2. Leg fracture Social history: He is here with his . He continues to smoke 1 pack of cigarettes daily. He drinks alcohol rarely. General Appearance: Alert. Vital signs reviewed. Eyes: Pupils equal and round, no conjunctival injection, no discharge. Anicteric. ENT, Mouth: Mucous membranes are moist, no oropharyngeal erythema or edema. Neck: No lymphadenopathy, supple. Respiratory: Lungs with distant breath sounds. Cardiovascular: Tachycardic; no murmur, rub, or gallop. Gastrointestinal: Abdomen is obese, soft and mildly diffusely tender without guarding, no masses or organomegaly appreciated but body habitus makes the exam somewhat difficult, bowel sounds normal. Skin: Warm and dry, normal color. He has an erythematous macular rash involving his trunk, areas of his arms and legs. There is some excoriations noted. No urticaria. Back: Nontender to palpation over the thoracolumbar spine. No CVAT. Extremities: No lower extremity edema, no calf tenderness or swelling. Neurological: Alert and oriented. Moving all four extremities easily and equally. Psychiatric: Normal affect. - Personal History Tetanus Vaccine Date: < 10 years - Medical/Surgical History Hx Asthma: Yes Hx Chronic Respiratory Disease: No Hx Diabetes: No Hx Cardiac Disease: No Hx Renal Disease: No Hx Cirrhosis: No Hx Alcoholism: No Hx HIV/AIDS: No Hx Splenectomy or Spleen Trauma: No Other PMH: Hypothyroidism, Asthma, Hyperlipidemia, HTN, Bipolar. hernia repair , ESOPHAGITIS, sleep apnea, obese, anxiety,smoker - Social History Smoking Status: Light smoker Constitutional: Initial Vital Signs Temperature (C) 37.5 C 11/12/17 13:00 Heart Rate 138 H 11/12/17 13:00 Respiratory Rate 18 11/12/17 13:00 Blood Pressure 158/97 H 11/12/17 13:00 O2 Sat (%) 95 11/12/17 13:00 O2 Delivery Mode Room Air Allergies/Adverse Reactions: No Known Allergies Allergy (Verified 03/27/17 14:58) Home Medications: Medication Instructions Recorded Levothyroxine [Synthroid 200 mcg 200 mcg PO DAILY06 06/07/15 (*)] Levothyroxine [Synthroid 75 mcg 75 mcg PO DAILY06 06/07/15 (*)] clonazePAM [klonoPIN (*)] 2 mg PO HS 06/07/15 Fluticasone/Salmeter 250/50Mcg 1 puffs IH BID disk 04/11/17 [Advair 250/50 (*)] Lurasidone HCl [Latuda] 40 mg PO HS tab 04/11/17 Medical Decision Making ED Course/Re-evaluation: Patient's labs reviewed. He appears to be hemoconcentrated with an elevated hemoglobin and hematocrit. White blood cell count is elevated over 20,000. His potassium is elevated at 5.9. He is receiving IV fluids in the emergency department and has received Zofran. He was re-evaluated at 2:45 p.m.. At that time he is noted to be scratching the rash. IV Benadryl will be given. He has a diffuse macular erythematous rash with some excoriations. Oropharynx is without swelling. No urticaria. Not typical of anaphylaxis. He completed part of an albuterol nebulizer discontinued it, as he does not like taking the albuterol. He is not hypoxic. After 1 L IV fluids he continues with heart rate in the 120s. He has not had further vomiting and has not had another bout of diarrhea. Stool sample has been requested. 2nd L of IV fluid was administered and this will be followed by a 3rd. He continues with tachycardia. His heart rate has decreased from the 130s to 119. I think he will continue to improve with hydration. He is being admitted to the hospitalist service. He does not have a surgical abdomen. Differential Diagnosis: I considered a differential diagnosis that includes but is not limited to gastroenteritis, diarrhea caused by part is 0/bacteria/or virus, colitis, appendicitis, cholecystitis, urinary tract infection. - Data Points Laboratory Results: Laboratory Results 11/12/17 13:25 11/12/17 13:25 11/12/17 11/12/17 13:25 13:25 WBC 22.60 10^3/uL H 10^3/uL (3.80-9.50) RBC 7.45 10^6/uL H 10^6/uL (4.40-6.38) Hgb 21.4 g/dL H* g/dL (13.7-17.5) Hct 61.8 % H* % (40.0-51.0) MCV 83.0 fL fL (81.5-99.8) MCH 28.7 pg pg (27.9-34.1) MCHC 34.6 g/dL g/dL (32.4-36.7) RDW 15.6 % H % (11.5-15.2) Plt Count 504 10^3/uL H 10^3/uL (150-400) MPV 10.0 fL fL (8.7-11.7) Neut % (Auto) 85.7 % H % (39.3-74.2) Lymph % (Auto) 6.6 % L % (15.0-45.0) Island % (Auto) 4.1 % L % (4.5-13.0) Eos % (Auto) 2.7 % % (0.6-7.6) Baso % (Auto) 0.3 % % (0.3-1.7) Nucleat RBC Rel Count 0.0 % % (0.0-0.2) Absolute Neuts (auto) 19.35 10^3/uL H 10^3/uL (1.70-6.50) Absolute Lymphs (auto) 1.50 10^3/uL 10^3/uL (1.00-3.00) Absolute Monos (auto) 0.93 10^3/uL H 10^3/uL (0.30-0.80) Absolute Eos (auto) 0.62 10^3/uL H 10^3/uL (0.03-0.40) Absolute Basos (auto) 0.06 10^3/uL 10^3/uL (0.02-0.10) Absolute Nucleated RBC 0.00 10^3/uL 10^3/uL (0-0.01) Immature Gran % 0.6 % % (0.0-1.1) Immature Gran # 0.14 10^3/uL H 10^3/uL (0.00-0.10) Sodium 136 mEq/L mEq/L (135-145) Potassium 5.9 mEq/L H mEq/L (3.5-5.2) Chloride 103 mEq/L mEq/L (97-110) Carbon Dioxide 17 mEq/l L mEq/l (22-31) Anion Gap 16 mEq/L mEq/L (8-16) BUN 17 mg/dL mg/dL (7-23) Creatinine 1.2 mg/dL mg/dL (0.7-1.3) Estimated GFR > 60 Glucose 145 mg/dL H mg/dL (70-100) Calcium 9.8 mg/dL mg/dL (8.5-10.4) Total Bilirubin 1.2 mg/dL mg/dL (0.1-1.4) AST 52 IU/L IU/L (17-59) ALT 58 IU/L IU/L (21-72) Alkaline Phosphatase 72 IU/L IU/L (38-126) Total Protein 7.4 g/dL g/dL (6.3-8.2) Albumin 4.5 g/dL g/dL (3.5-5.0) Specimen Hemolysis 169 Medications Given: Discontinued Medications Albuterol (Proventil Neb) 3 ml IH EDNOW ONE Stop: 11/12/17 14:23 Last Admin: 11/12/17 14:33 Dose: 3 ml Diphenhydramine HCl (Benadryl Injection) 25 mg IVP EDNOW ONE Stop: 11/12/17 14:52 Last Admin: 11/12/17 15:04 Dose: 25 mg Sodium Chloride (Ns) 1,000 mls @ 0 mls/hr IV EDNOW ONE; Wide Open PRN Reason: Protocol Stop: 11/12/17 14:25 Last Admin: 11/12/17 14:33 Dose: 1,000 mls Ondansetron HCl (Zofran Odt) 4 mg PO EDNOW ONE Stop: 11/12/17 13:04 Last Admin: 11/12/17 13:33 Dose: 4 mg Departure - Departure Disposition: [facility] Acute Clinical Impression: Acute gastroenteritis Condition: Fair
[2017-11-12 13:54] LABS: PLATELET COUNT 504 10^3/uL (150-400)
[2017-11-12] MEDS ORDERED: ALBUTEROL 3 ML DEYVIAL IH ONE (14:22)
[2017-11-12] MEDS ORDERED: NS 1,000 ML IV ONE ×2 (14:24→16:17)
--- NOTE | 2017-11-12 16:14 | PDGENHP ---
History and Physical - Chief Complaint Nausea vomiting and diarrhea - History of Present Illness This is a 47-year-old male presents to the hospital with nausea vomiting and diarrhea that started Saturday night. His symptoms began a couple hours after eating sushi. He states that today he has not been able eat or drink anything. He is having multiple bouts of diarrhea daily which she describes as bloody. He has some mild diffuse abdominal pain. He has some fevers and chills. He has not been on antibiotics recently. Does not have any sick contacts. Patient reports having a rash that itches it broke out earlier today. He is unsure what triggered it. History Information - Allergies/Home Medication List Allergies/Adverse Reactions: No Known Allergies Allergy (Verified 03/27/17 14:58) Home Medications: Levothyroxine [Synthroid 200 mcg (*)] 200 mcg PO DAILY06 06/07/15 [Last Taken ] Levothyroxine [Synthroid 75 mcg (*)] 75 mcg PO DAILY06 06/07/15 [Last Taken ] clonazePAM [klonoPIN (*)] 2 mg PO HS 06/07/15 [Last Taken 11/11/17] Ipratropium/Albuterol [Combivent Respimat Inhal [place](*)] 1 inh IH QID PRN 11/12 [Last Taken Unknown] I have personally reviewed and updated: family history, medical history, social history, surgical history - Past Medical History asthma, hypertension, hyperlipidemia Additional medical history: Hypothyroidism, obstructive sleep apnea, bipolar disorder - Surgical History Additional surgical history: Hernia repair - Social History Smoking Status: Current every day smoker (10 cigarettes per day) Alcohol Use: Occasionally Review of Systems Review of Systems: ROS: 10pt was reviewed & negative except for what was stated in HPI & below Physical Exam Physical Exam: Temp Pulse Resp BP Pulse Ox 37.5 C 124 H 18 140/95 H 98 11/12/17 13:00 11/12/17 14:15 11/12/17 14:15 11/12/17 14:15 11/12/17 14:15 Constitutional: no apparent distress, appears nourished, not in pain Eyes: PERRL, anicteric sclera, EOMI Ears, Nose, Mouth, Throat: moist mucous membranes, hearing normal, ears appear normal, no oral mucosal ulcers Cardiovascular: regular rate and rhythym, no murmur, rub, or gallop, No edema Respiratory: no respiratory distress, no rales or rhonchi, clear to auscultation Gastrointestinal: normoactive bowel sounds, soft, non-tender abdomen, no palpable masses, distension, No mckeon's sign, No guarding, No rebound Genitourinary: no bladder fullness, no bladder tenderness Skin: warm, normal color, no induration, rash (Is confluent macular erythematous rash on back and chest), No mottled Musculoskeletal: full muscle strength, no muscle tenderness, normal joint ROM, no joint effusions Neurologic: AAOx3, CN II-XII Intact, No facial droop Psychiatric: interacting appropriately, not anxious, not encephalopathic, thought process linear Lymph, Heme, Immunologic: no cervical LAD, no supraclavicular LAD Lab Data & Imaging Review 11/12/17 13:25 11/12/17 13:25 WBC 22.60 10^3/uL (3.80-9.50) H 11/12/17 13:25 RBC 7.45 10^6/uL (4.40-6.38) H 11/12/17 13:25 Hgb 21.4 g/dL (13.7-17.5) H* 11/12/17 13:25 Hct 61.8 % (40.0-51.0) H* 11/12/17 13:25 MCV 83.0 fL (81.5-99.8) 11/12/17 13:25 MCH 28.7 pg (27.9-34.1) 11/12/17 13:25 MCHC 34.6 g/dL (32.4-36.7) 11/12/17 13:25 RDW 15.6 % (11.5-15.2) H 11/12/17 13:25 Plt Count 504 10^3/uL (150-400) H 11/12/17 13:25 MPV 10.0 fL (8.7-11.7) 11/12/17 13:25 Neut % (Auto) 85.7 % (39.3-74.2) H 11/12/17 13:25 Lymph % (Auto) 6.6 % (15.0-45.0) L 11/12/17 13:25 [place] % (Auto) 4.1 % (4.5-13.0) L 11/12/17 13:25 Eos % (Auto) 2.7 % (0.6-7.6) 11/12/17 13:25 Baso % (Auto) 0.3 % (0.3-1.7) 11/12/17 13:25 Nucleat RBC Rel Count 0.0 % (0.0-0.2) 11/12/17 13:25 Absolute Neuts (auto) 19.35 10^3/uL (1.70-6.50) H 11/12/17 13:25 Absolute Lymphs (auto) 1.50 10^3/uL (1.00-3.00) 11/12/17 13:25 Absolute Monos (auto) 0.93 10^3/uL (0.30-0.80) H 11/12/17 13:25 Absolute Eos (auto) 0.62 10^3/uL (0.03-0.40) H 11/12/17 13:25 Absolute Basos (auto) 0.06 10^3/uL (0.02-0.10) 11/12/17 13:25 Absolute Nucleated RBC 0.00 10^3/uL (0-0.01) 11/12/17 13:25 Immature Gran % 0.6 % (0.0-1.1) 11/12/17 13:25 Immature Gran # 0.14 10^3/uL (0.00-0.10) H 11/12/17 13:25 Sodium 136 mEq/L (135-145) 11/12/17 13:25 Potassium 5.9 mEq/L (3.5-5.2) H 11/12/17 13:25 Chloride 103 mEq/L (97-110) 11/12/17 13:25 Carbon Dioxide 17 mEq/l (22-31) L 11/12/17 13:25 Anion Gap 16 mEq/L (8-16) 11/12/17 13:25 BUN 17 mg/dL (7-23) 11/12/17 13:25 Creatinine 1.2 mg/dL (0.7-1.3) 11/12/17 13:25 Estimated GFR > 60 11/12/17 13:25 Glucose 145 mg/dL (70-100) H 11/12/17 13:25 Calcium 9.8 mg/dL (8.5-10.4) 11/12/17 13:25 Total Bilirubin 1.2 mg/dL (0.1-1.4) 11/12/17 13:25 AST 52 IU/L (17-59) 11/12/17 13:25 ALT 58 IU/L (21-72) 11/12/17 13:25 Alkaline Phosphatase 72 IU/L (38-126) 11/12/17 13:25 Total Protein 7.4 g/dL (6.3-8.2) 11/12/17 13:25 Albumin 4.5 g/dL (3.5-5.0) 11/12/17 13:25 Specimen Hemolysis 169 11/12/17 13:25 Assessment & Plan Assessment: A 47-year-old male presenting with: # acute gastroenteritis # systemic inflammatory response syndrome # dehydration due to above with evidence of hemoconcentration on CBC # Mild hyperkalemia # diffuse macular rash of unclear etiology Plan: -placed observation -send stool pathogen panel -IV hydration -send blood cultures -monitor potassium -p.r.n. Benadryl for itching
[2017-11-12] MEDS ORDERED: ACETAMINOPHEN 325 MG TAB PO PRN (16:17)
[2017-11-12] MEDS ORDERED: ONDANSETRON 4 MG/2 ML VIAL IVP PRN (16:17)
[2017-11-12] MEDS ORDERED: IPRATROPIUM/ALBUTEROL 4GM MDI IH PRN (16:19)
[2017-11-12] MEDS ORDERED: diphenhydrAMINE 25 MG CAP PO PRN (16:20)
[2017-11-12] MEDS ORDERED: CALCIUM CARBONATE 500 MG CHEWABLE TAB PO PRN (17:51)
[2017-11-12] MEDS: D5W 1/2 NS 1,000 ML IV SCH (19:00)
[2017-11-12] MEDS ORDERED: clonazePAM 1 MG TAB PO SCH (21:00)
[2017-11-12] MEDS ORDERED: LURASIDONE HCL 40 MG TAB PO SCH (21:00)
[2017-11-12] MEDS: POTASSIUM CL 20 MEQ TAB PO SCH ×2 (22:01→22:02)
[2017-11-12] MEDS: FLUTICASONE/SALMETER 250/50MCG DISKUS IH SCH (22:25)
[2017-11-13] MEDS: D5W 1/2 NS 1,000 ML IV SCH (02:36)
[2017-11-13] MEDS ORDERED: LEVOTHYROXINE 200 MCG TAB PO SCH (06:00)
[2017-11-13] MEDS ORDERED: LEVOTHYROXINE 75 MCG TAB PO SCH (06:00)
[2017-11-13 08:16] LABS: PLATELET COUNT 324 10^3/uL (150-400)
[2017-11-13] MEDS: FLUTICASONE/SALMETER 250/50MCG DISKUS IH SCH (08:44)
[2017-11-13] MEDS: POTASSIUM CL 20 MEQ TAB PO SCH (09:15)
--- NOTE | 2017-11-13 10:42 | ASMTCASEMG ---
Living Arrangements What is your living Answers: With Spouse arrangement? Who do you live with? Type Of Residence What kind of residence do Answers: House you live in? Discharge Plan Comments Coordination Status Comments Notes: Pt is a 47 y/o man admitted for nausea, vomiting and diarrhea. Pt will most likely d/c independent when medically stable. No therapies ordered at this time. CM available for changes. Plan: Independent Date Signed: 11/13/2017 10:42 AM Electronically Signed By:DALILA Bronson
[2017-11-13 11:35] VITALS: BP 127/77
--- NOTE | 2017-11-13 11:36 | GDS ---
[f rep st] DISCHARGE SUMMARY DISCHARGE DIAGNOSES: Acute gastroenteritis, likely food poisoning, systemic inflammatory response syndrome, dehydration, hyperkalemia, hypothyroidism, asthma, hypertension, hyperlipidemia, obstructive sleep apnea, bipolar disorder. HISTORY OF PRESENT ILLNESS: A 47-year-old male with history of bipolar disorder , asthma, TAMMY on CPAP, presented with nausea, vomiting, diarrhea that started Saturday night. Symptoms began shortly after eating sushi. He has not been able to tolerate fluids or food. He has been having multiple bouts of diarrhea daily , which describes as oily. He has had intermittent fevers, chills. No recent antibiotics. Denies any ill contacts. HOSPITAL COURSE BY PROBLEM: 1. Acute gastroenteritis: Suspect due to food poisoning. GI panel was negative here. He has remained afebrile. He is now tolerating liquids without issue. 2. SIRS: Secondary to acute gastritis and dehydration. This has resolved. 3. Hyperkalemia, resolved. 4. Bipolar disorder. Resume home medications. 5. Hypothyroidism. Synthroid. DIET: Advance slowly by starting with bland foods. Drink plenty of fluids. DISPOSITION: Patient is stable for discharge home. MEDICATIONS: No new medications. FOLLOWUP: Follow up with your primary care physician. PHYSICAL EXAMINATION: VITAL SIGNS: Today, temperature 36.3, blood pressure 127 /87, heart rate 90, respirations 18, 91% on room air. GENERAL: Obese male sitting in bed, no acute distress. HEENT: PERRLA. Moist mucous membranes. CV : Regular rate and rhythm. No murmurs, gallops, or rubs. LUNGS: Clear. Diminished but no wheezing or crackles. ABDOMEN: Obese, soft, nontender, nondistended. Positive bowel sounds. : No Acevedo. MUSCULOSKELETAL: 5/5 upper and lower extremity strength. NEUROLOGIC: 2 through 12 intact. PSYCH: Alert and oriented x3. /[id number]/MODL Time spent on DC: > 35 min bedside, reviewing progress notes and educating on diet/hydration. MTDD
== END 2017-11-13 12:44 | disposition home or self-care (01) ==
LOC: UNDOADMOB 15:27 → F1N 17:23
PROVIDERS: ADMIT Family Medicine; ATTEND Internal Medicine
DX: K52.9 Noninfective gastroenteritis and colitis, unspecified (principal); E87.5 Hyperkalemia; E86.0 Dehydration; R21 Rash and other nonspecific skin eruption; E03.9 Hypothyroidism, unspecified; I10 Essential (primary) hypertension; E78.5 Hyperlipidemia, unspecified; G47.33 Obstructive sleep apnea (adult) (pediatric); F31.9 Bipolar disorder, unspecified; F17.210 Nicotine dependence, cigarettes, uncomplicated; E66.9 Obesity, unspecified; Z68.39 Body mass index [BMI] 39.0-39.9, adult
CPT/HCPCS: 96361; 96374; 99285; G0378; J1200; J7613

== ENCOUNTER 2018-01-18 06:12 | Inpatient (IN) | payer OTHER, MEDICAID ==
--- NOTE | 2018-01-18 06:38 | EDPHY ---
H & P Stated Complaint: bipolar said "i want to go to [facility]" states Not Si or Hi Source: Patient, Family - Personal History Current Tetanus/Diphtheria Vaccine: Unsure Current Tetanus Diphtheria and Acellular Pertussis (TDAP): Unsure Tetanus Vaccine Date: < 10 years - Medical/Surgical History Hx Asthma: Yes Hx Chronic Respiratory Disease: No Hx Diabetes: No Hx Cardiac Disease: No Hx Renal Disease: No Hx Cirrhosis: No Hx Alcoholism: No Hx HIV/AIDS: No Hx Splenectomy or Spleen Trauma: No Other PMH: Hypothyroidism, Asthma, Hyperlipidemia, HTN, Bipolar. hernia repair , ESOPHAGITIS, sleep apnea, obese, anxiety,smoker - Social History Smoking Status: Current every day smoker Time Seen by Provider: 01/18/18 06:27 HPI/ROS: HPI The patient presents with increasing paranoia, feeling that the police, the Mafia, the FBI are all out to get him. He says that he is"smelling ". He has been feeling this way for the last 2 weeks and his symptoms have been getting progressively worse. His reports that he is missing his appointments with [facility] and his public health social worker because of this. He has been isolating himself. He has been medicating himself with some nontraditional treatments. He has missed some of his doses of Latuda. He does drink alcohol though not much lately. He denies any SI or HI. He took clonazepam 1-2 mg, he is unsure about 1 hr prior to arrival. His said it was very difficult to get him to the hospital, they turned around several times , but eventually he agreed to come in. He was admitted to [address] [place] [address] in March of 2017 for suicidal ideation. He was admitted to the hospital in November of this year for acute gastroenteritis. REVIEW OF SYSTEMS Constitutional: No fever, no chills. Eyes: No discharge. ENT: No sore throat. Cardiovascular: No chest pain, no palpitations. Respiratory: No cough, no shortness of breath. Gastrointestinal: No abdominal pain, no vomiting. Genitourinary: No hematuria. Musculoskeletal: No back pain. Skin: No rashes. Neurological: No headache. PMHx: Schizoaffective disorder, hypertension, sleep apnea uses CPAP Soc Hx: Here with his , house, history of alcohol and amphetamine abuse, smoker PHYSICAL General Appearance: Sedate in no acute distress Eyes: Pupils equal and round no pallor or injection ENT, Mouth: Mucous membranes moist Respiratory: There are no retractions, lungs are clear to auscultation Cardiovascular: Regular rate and rhythm Gastrointestinal: Abdomen is soft and non-tender, no masses, bowel sounds normal Neurological: A&O, moves all extremities Skin: Warm and dry, no rashes Musculoskeletal: Neck is supple non tender Extremities: symmetrical, full range of motion Psychiatric: Patient is oriented X 3, there is no agitation, does endorse paranoid delusions (Joyce Isaacs) Constitutional: Initial Vital Signs Temperature (C) 36.9 C 01/18/18 06:13 Heart Rate 87 01/18/18 06:13 Respiratory Rate 16 01/18/18 06:13 Blood Pressure 158/100 H 01/18/18 06:13 O2 Sat (%) 95 01/18/18 06:13 O2 Delivery Mode Room Air Allergies/Adverse Reactions: No Known Allergies Allergy (Verified 03/27/17 14:58) Home Medications: Medication Instructions Recorded Levothyroxine [Synthroid 200 mcg 200 mcg PO DAILY06 06/07/15 (*)] Levothyroxine [Synthroid 75 mcg 75 mcg PO DAILY06 06/07/15 (*)] clonazePAM [klonoPIN (*)] 2 mg PO HS 06/07/15 Fluticasone/Salmeter 250/50Mcg 1 puffs IH BID disk 04/11/17 [Advair 250/50 (*)] Lurasidone HCl [Latuda] 40 mg PO HS tab 04/11/17 Ipratropium/Albuterol [Combivent 1 inh IH QID PRN 11/12/17 Respimat Inhal [place](*)] Medical Decision Making Differential Diagnosis: 47-year-old male with history of schizoaffective disorder, also amphetamine and alcohol abuse presents brought in by his was concerned about increasing paranoid delusions, self isolating behaviors, missing his appointment and not taking his medications. Here, he is quite sedate after taking clonazepam prior to arrival. The remainder of his exam is unremarkable. I will place him on an M1 hold for grave disability as I am concerned about his ability to function. We will check basic labs. The case will be signed out at 7:00 a.m. To the oncoming provider Dr. Matson. Differential diagnoses considered include decompensated schizoaffective disorder , polysubstance abuse, his alcohol intoxication. (Joyce Isaacs) Other Provider: I assumed care of the patient at 0700. The patient was seen by [facility] who feels he should be admitted for psychiatric treatment. Disposition is pending as of 2:00 p.m.. The patient will be turned over Dr. Luke Rg at shift change. (Pawel Matson) Care assumed at 2:40 p.m. With plan for psychiatric admission. 193: The patient will be transferred to [place] for inpatient psychiatric hospital bed not available at this facility, in stable condition; accepting physician is Dr. Camara. EMTALA form completed. (Luke Rg) - Data Points Laboratory Results: Laboratory Results 01/18/18 06:47 01/18/18 06:00 01/18/18 08:45 Urine Opiates Screen NEGATIVE (NEGATIVE) Urine Barbiturates NEGATIVE (NEGATIVE) Ur Phencyclidine Scrn NEGATIVE (NEGATIVE) Ur Amphetamine Screen NEGATIVE (NEGATIVE) U Benzodiazepines Scrn NEGATIVE (NEGATIVE) Urine Cocaine Screen NEGATIVE (NEGATIVE) U Marijuana (THC) Screen NEGATIVE (NEGATIVE) Medications Given: Discontinued Medications Nicotine (Nicoderm Cq) 21 mg TD EDNOW ONE Stop: 01/18/18 18:39 Last Admin: 01/18/18 18:48 Dose: 21 mg Departure - Departure Disposition: [facility] IP Clinical Impression: Paranoid delusion Schizoaffective disorder Qualifiers: Schizoaffective disorder type: bipolar Qualified Code(s): F25.0 - Schizoaffective disorder, bipolar type Condition: Fair Referrals: NONE *PRIMARY CARE P,. [Primary Care Provider] - As per Instructions
[2018-01-18 07:02] LABS: PLATELET COUNT 321 10^3/uL (150-400)
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
[2018-01-18] MEDS ORDERED: NICOTINE 21 MG/24 HR PATCH TD ONE ×2 (18:35→18:38)
[2018-01-19] MEDS ORDERED: MAG HYDROX/AL HYDROX/SIMETH 30 ML UDCUP PO PRN (03:00)
[2018-01-19] MEDS ORDERED: OLANZapine DISINTEGR 5 MG TAB PO PRN (03:00)
[2018-01-19] MEDS ORDERED: MAGNESIUM HYDROXIDE 30 ML UDCUP PO PRN (03:00)
[2018-01-19] MEDS ORDERED: ACETAMINOPHEN 325 MG TAB PO PRN (03:00)
[2018-01-19] MEDS: LORazepam 0.5 MG TAB PO PRN ×2 (03:16→21:10)
[2018-01-19] MEDS ORDERED: IPRATROPIUM/ALBUTEROL 4GM MDI IH PRN (12:26)
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
--- NOTE | 2018-01-19 16:02 | ASMTBHMTP ---
Master Treatment Plan Master Treatment Plan Answers: Impaired Reality for: Date: 01/19/2018 Diagnosis on Admission: Schizoaffective Disorder Expected length of stay: 3-5 Days Reason for admission: Notes: Per ED report, pt. is a 47 year old male brought in by his who was concerned about increasing paranoid delusions, self isolating behaviors, missing his appointment and not take his medications. Patient's stated presenting problems: Notes: Was perceiving psychic attacks, was using while magic to counteract. Has been using Meth to keep going Patient's goals for treatment: Notes: Get some rest and get on medications Patient's strengths: Notes: Know all about [employer] Identify supports outside of hospital: Notes: Myself, and my was Discharge criteria: Notes: Psychotic symptoms will be reduced or eliminated with return to baseline functioning in affect, thinking, and behavior prior to discharge. Initial disposition plan/considerations: Notes: Live in [place] [facility] with and conintue practicing Master Treatment Plan Required Signatures Psychiatrist signature: Answers: Remigio Camara MD: RN on-shift signature: Answers: RN: Patient signature: Answers: Patient: Date Signed: 01/19/2018 01:01 PM Electronically Signed By:Christi Raza
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
[2018-01-19] MEDS: FLUTICASONE/SALMETER 250/50MCG DISKUS IH SCH ×2 (18:07→21:13)
[2018-01-19] MEDS: LURASIDONE HCL 40 MG TAB PO SCH (18:08)
[2018-01-19] MEDS: NICOTINE POLACRILEX 2 MG GUM B PRN (21:09)
[2018-01-20] MEDS: LEVOTHYROXINE 200 MCG TAB PO SCH (08:34)
[2018-01-20] MEDS: FLUTICASONE/SALMETER 250/50MCG DISKUS IH SCH ×2 (08:35→19:30)
[2018-01-20] MEDS: LEVOTHYROXINE 75 MCG TAB PO SCH (08:35)
[2018-01-20] MEDS: NICOTINE POLACRILEX 2 MG GUM B PRN ×4 (08:40→19:51)
--- NOTE | 2018-01-20 09:02 | PDMN ---
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
--- NOTE | 2018-01-20 13:50 | SOAPPROG ---
SOAP Progress Note Assessment/Plan: Assessment: Plan: 01/20/18 13:52 Psychosis: Improving. Will CCM. Continue d/c planning. Convert to voluntary. Subjective: Pt seen, discussed with staff, chart reviewed. He is known to me from previous hospitalization. Since admission, he has been isolative, spending most of his time sleeping in his room. Attended goals group this morning for the first time. He states he is resting due to "coming down from meth." States he was doing meth in order to "stay awake to do my prayers and wait for the spirits to come." No insight into possible contribution from the meth to his psychosis or agitation. Acknowledges that he "needs to keep it down" and that his "prayer rituals" disturbed the neighbors. States he is ready to be more interactive on the unit. Agrees to remain as a voluntary patient. Compliant with Latuda stating he believes it helps him. Asks numerous times if he can increase the Ativan or add Klonopin at night for sleep. I remind him that he is sleeping excessively and there is no need for this. Objective: Vital Signs Temp Pulse Resp BP Pulse Ox 36.9 C 93 16 103/64 93 01/20/18 06:00 01/20/18 06:00 01/20/18 06:00 01/20/18 06:00 01/20/18 06:00 MSE: Marginally groomed, interactive, though somewhat guarded. Activity and speech are normal. Affect is euthymic, stable, approp. Mood is "coming up." TP is generally linear, though he drops off into some of restorationist delusional systems that are hard to follow. TC reveals preoccupation with "religions", possible paranoia, possible IOR's. Denies SI/HI/. - Time Spent With Patient Time Spent With Patient: 25" ICD10 Worksheet Patient Problems: Problems Problem Status Onset Paranoid delusion Acute Schizoaffective disorder Acute Acute gastroenteritis Acute Alcohol use disorder, severe, dependence Acute Postoperative hypoxia Acute
[2018-01-20] MEDS: LURASIDONE HCL 40 MG TAB PO SCH (17:20)
[2018-01-20] MEDS: LORazepam 0.5 MG TAB PO PRN (19:29)
[2018-01-20] MEDS: IPRATROPIUM/ALBUTEROL 4GM MDI IH PRN (19:30)
[2018-01-21] MEDS: NICOTINE POLACRILEX 2 MG GUM B PRN ×6 (07:14→18:12)
[2018-01-21] MEDS: FLUTICASONE/SALMETER 250/50MCG DISKUS IH SCH ×2 (08:23→20:35)
[2018-01-21] MEDS: LORazepam 0.5 MG TAB PO PRN ×2 (10:00→19:58)
[2018-01-21] MEDS: LEVOTHYROXINE 75 MCG TAB PO SCH (10:34)
[2018-01-21] MEDS: LEVOTHYROXINE 200 MCG TAB PO SCH (10:34)
--- NOTE | 2018-01-21 12:25 | SOAPPROG ---
SOAP Progress Note Assessment/Plan: Assessment: Plan: 01/20/18 13:52 Psychosis: Improving. Will CCM. Continue d/c planning. Convert to voluntary. 01/21/18 12:23 Psychosis: Continued improvement. Psychosis is stable. No behavioral issues. Will [facility], schedule family meeting to discuss treatment and d/c plan. Subjective: Pt seen, discussed with staff. States he felt coerced to sign the voluntary form. I challenged him on this as we discussed it yesterday and he was agreeable with no mention of possible certification. He continues to isolate in his room except for meals. Not attending groups, states, "They are kindergarten to me. I need someone who is on my intellectual level to talk to. " He is agreeable to family meeting with his . Objective: Vital Signs Temp Pulse Resp BP Pulse Ox 36.9 C 84 14 118/77 93 01/20/18 06:00 01/21/18 06:00 01/21/18 06:00 01/21/18 06:00 01/21/18 06:00 - Time Spent With Patient Time Spent With Patient: 25" ICD10 Worksheet Patient Problems: Problems Problem Status Onset Paranoid delusion Acute Schizoaffective disorder Acute Acute gastroenteritis Acute Alcohol use disorder, severe, dependence Acute Postoperative hypoxia Acute
[2018-01-21] MEDS: LURASIDONE HCL 40 MG TAB PO SCH ×2 (16:58→17:40)
[2018-01-22 06:46] VITALS: BP 111/78
[2018-01-22] MEDS: LORazepam 0.5 MG TAB PO PRN (08:22)
[2018-01-22] MEDS: NICOTINE POLACRILEX 2 MG GUM B PRN ×2 (08:22→10:03)
--- NOTE | 2018-01-22 08:35 | ASMTBHDC ---
Notes Note: Notes: CC speaks to client briefly during check-in. Client denies any feelings of anxiety, depression, AVH and/or S/I -H/I. Client presents as entitled labile affect while displaying a mostly unpleasant demeanor. CC was able to confirm family meeting set today with , client, CC and doctor at 11:30am. Additionally, all of client's follow up appts are in his discharge checklist (listed below) for further reference. Follow-up with: [facility] [address] [place] [address] Dr. Gandara - (Psychiatrist) Next Appt: SaturdayFebruary 14 (02/14/18) at 8:15am Laurent Wheeler - (Therapist) Next Appt: SaturdayJanuary 31, (01/31/18) at 12:00pm Date Signed: 01/22/2018 08:35 AM Electronically Signed By:Fransico Worthington
[2018-01-22] MEDS: FLUTICASONE/SALMETER 250/50MCG DISKUS IH SCH (08:50)
[2018-01-22] MEDS: IPRATROPIUM/ALBUTEROL 4GM MDI IH PRN (08:51)
[2018-01-22] MEDS: LEVOTHYROXINE 200 MCG TAB PO SCH (10:03)
[2018-01-22] MEDS: LEVOTHYROXINE 75 MCG TAB PO SCH (10:03)
--- NOTE | 2018-01-23 18:00 | BDS ---
[f rep st] BEHAVIORAL HEALTH DISCHARGE SUMMARY REASON FOR ADMISSION: Patient is a 47-year-old male with a history of schizoaffective diso rder. He was admitted to the hospital after his brought him in reporting that he had been havin g increasing delusions, was missing his appointments, was not taking his medications, and had been us ing methamphetamine. A full description of the events preceding admission can be found in Dr. Camara's admission history dated 01/19/18. ADMITTING DIAGNOSES: Per Dr. Camara: 1. Schizoaffective disorder, bipolar type. 2. Substance-induced brief psychotic disorder. 3. Amphetamine use disorder, severe. 4. Alcohol use disorder, unknown severity. 5. Chronic polysubstance use. 6. Inadequate social support. 7. History of noncompliance with medications and with treatment. 8. Multiple comorbid physical health problems. Admitting physical examination performed by Dr. Car Brewer revealed obesity, no other acute phys ical findings. ADMISSION LABORATORY: CBC was normal. Serum chemistries were normal. TSH was elevated at 15.9. Ur ine drug screen was negative for all substances and alcohol was less than detectable. HOSPITAL COURSE: The patient was admitted to the behavioral health services inpatient unit on an M1 hold. He was initially somewhat irritable, stating that he needed simply to rest. He spent the firs t 2 days of his hospitalization lying in bed and sleeping, getting up only to eat. He refused to att end groups throughout his stay, stating that the other patients were "like kindergartens to me." He has a history of this type of behavior and attitude and he was not actually as hostile as he has been in the past on previous hospitalizations. He was cooperative with staff direction and compliant wit medications. I discussed with the patient his current medication regimen and he stated that he needed clonazepam a t bedtime for sleep and wanted to increase his Ativan to 2 mg 2 to 3 times a day. I indicated to him that we were not going to do that as he was sleeping excessively and he did not seem to be in any si gnificant anxiety. He was accepting of this. We did restart his Latuda at 40 mg, which he states turner s been the most effective dose for him in the past. He tolerated this well with no side effects. Patient's hospitalization was uncomplicated. He stabilized rapidly, displaying no evidence of acute psychosis besides his longstanding episcopalian preoccupations and beliefs in magic and witchcraft. He was interviewed in a discharge planning and family meeting on the day of discharge with his pres ent and we reviewed the circumstances preceding admission, including his substance use. He stated th at he felt like he would be able to abstain from ongoing substance use but did not rule out picking u p the methamphetamine in the future, which he states helps him concentrate and think when he has to w ork through a problem. I advised him strongly that this would be a negative factor for his overall s tability and he should avoid any further methamphetamine use at any time. Patient was not accepting of this. He did state he would return to his outpatient providers in the [facility] [employer] was able t o make arrangements. Condition at discharge was stable. His affect was euthymic, stable, and appropriate. He was calm an d cooperative and not displaying any irritability, paranoia, or other acute psychotic symptoms. He w as denying any thoughts of suicide, homicide, or violence. He was compliant with his medications, fo rward thinking, and hopeful. DISCHARGE MEDICATIONS: Latuda 40 mg p.o. daily at 1800, clonazepam 2 mg p.o. q.h.s. at home. It is of note that he did not receive this medicine in the hospital and he stated he had a supply at home a nd was going to continue it. Synthroid 275 mcg daily, Advair inhaler 1 puff b.i.d., Combivent inhale r 1 puff q.i.d. p.r.n. DISCHARGE DIAGNOSES: 1. Schizoaffective disorder, bipolar type, chronic with acute exacerbation. 2. Methamphetamine use disorder, moderate. 3. Alcohol use disorder, moderate. 4. Chronic illness. 5. Recurrent illness. 6. Medication noncompliance. 7. Treatment noncompliance. 8. Marginal housing with possible pending eviction due to his inability to follow rules. DISPOSITION: The patient left the hospital with his to return to their home. FOLLOWUP: [facility] as scheduled by the [employer]. Patient is given wri tten instructions at the time of his discharge. ATTITUDE: Patient's attitude was positive at the time of discharge. LEGAL STATUS: Patient was converted to a voluntary status with expiration exam on hold. Patient did not have advanced directive on file; though he was full code throughout his stay. There are no pending labs or studies at the time of his discharge. /[id number]/MODL
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
== END 2018-01-22 12:41 | disposition home or self-care (01) | DRG 885 ==
LOC: BBEH 01-19 02:45
PROVIDERS: ADMIT Psychiatry & Neurology Psychiatry; ATTEND Psychiatry & Neurology Psychiatry
DX: F25.0 Schizoaffective disorder, bipolar type (principal); F15.20 Other stimulant dependence, uncomplicated; F10.20 Alcohol dependence, uncomplicated; Z91.128 Patient's intentional underdosing of medication regimen for other reason; Z91.19 Patient's noncompliance with other medical treatment and regimen; E66.09 Other obesity due to excess calories; E03.9 Hypothyroidism, unspecified; J45.909 Unspecified asthma, uncomplicated; E78.5 Hyperlipidemia, unspecified; I10 Essential (primary) hypertension; G47.30 Sleep apnea, unspecified; F17.210 Nicotine dependence, cigarettes, uncomplicated; E11.9 Type 2 diabetes mellitus without complications
CPT/HCPCS: 80305; G0480

== ENCOUNTER 2018-06-01 12:37 | Emergency (ER) | payer OTHER, MEDICAID ==
--- NOTE | 2018-06-01 12:38 | EDPHY ---
H & P Time Seen by Provider: 06/01/18 12:46 Constitutional: Initial Vital Signs Temperature (C) 36.9 C 06/01/18 12:46 Heart Rate 93 06/01/18 12:46 Respiratory Rate 16 06/01/18 12:46 Blood Pressure 150/89 H 06/01/18 12:46 O2 Sat (%) 98 06/01/18 12:46 O2 Delivery Mode Room Air Allergies/Adverse Reactions: No Known Allergies Allergy (Verified 03/27/17 14:58) Home Medications: Medication Instructions Recorded Levothyroxine [Synthroid 200 mcg 200 mcg PO DAILY06 06/07/15 (*)] Levothyroxine [Synthroid 75 mcg 75 mcg PO DAILY06 06/07/15 (*)] clonazePAM [klonoPIN (*)] 2 mg PO HS 06/07/15 Fluticasone/Salmeter 250/50Mcg 1 puffs IH BID disk 04/11/17 [Advair 250/50 (*)] Ipratropium/Albuterol [Combivent 1 inh IH QID PRN 11/12/17 Respimat Inhal [place](*)] Lurasidone HCl [Latuda] 40 mg PO DAILY AT 6PM tab 01/22/18 Medical Decision Making ED Course/Re-evaluation: CHIEF COMPLAINT: Medical clear for detention HISTORY OF PRESENT ILLNESS: 47-year-old gentleman who apparently was suicidal. The police arrived at his house and he was threatening the police with several types of weapons including a knife, gun, and some explosive. The patient was being bagged in center body mass and he was taste in the back. They brought the patient in via ambulance. He will go to detention but the need medical clearance 1st. Patient is denying any significant injury medical problems. REVIEW OF SYSTEMS: A comprehensive 10 system review of systems is otherwise negative aside from elements mentioned in the history of present illness and medical decision making. PHYSICAL EXAM: General Appearance: Alert, well hydrated, appropriate, and non-toxic appearing. Head: Atraumatic without scalp tenderness or obvious injury Eyes: Pupils equal, round, reactive to light and accommodation, EOMI, no trauma , no injection. Ears: Clear bilaterally, no perforation, normal landmarks Nose: Atraumatic, no rhinorrhea, clear. Throat: There is no erythema or exudates, no lesions, normal tonsils, mucus membranes moist. Neck: Supple, 2+ carotid upstroke, nontender, no lymphadenopathy. Respiratory: No retractions, no distress, no wheezes, and no accessory muscle use. Lungs are clear to auscultation bilaterally. Cardiovascular: Regular rate and rhythm, no murmurs, rubs, or gallops. Bilateral carotid, radial, dorsalis pedis, and posterior tibial pulses intact. Good capillary refill all extremities. Gastrointestinal: Abdomen is soft, nontender, non-distended, no masses, no rebound, no guarding, no peritoneal signs. Musculoskeletal: Normal active ROM of all extremities, atraumatic. Neurological: Alert, appropriate, and interactive. The patient has normal DTRs and non-focal cranial nerves, motor, sensory, and cerebellar exam. Skin: Abrasion in the center anterior abdomen from a beanbag. Soft benign otherwise with a longstanding inguinal hernia. He also has 2 probe [place]ingo on his back from the Taser that are unremarkable. No rashes, good turgor, no nodules on palpation. Past medical history: Psychiatric history Past surgical history: Noncontributory Family history: Noncontributory Social history: Single, not employed, uses drugs and alcohol. DIFFERENTIAL DIAGNOSIS: Includes but is not limited to: Intra-abdominal injury, internal injury from the Taser probes, infection, head injury, neck injury, extremity injury MEDICAL DECISION MAKING: Patient is in no acute distress and is hemodynamically stable. This patient is medically cleared for detention. He has a superficial abrasion and contusion on his center abdomen from the beanbag and 2 small punctures on his back from probes. Additionally, he has a longstanding reducible hernia of his umbilicus. I have spoken to the detention medical team and let them know that I have medically cleared this patient they also have my name to call back if there is any further questions. He will be taken by police and ambulance to the [facility] detention Departure - Departure Disposition: Home, Routine, Self-Care Clinical Impression: Medical clearance for incarceration, Abrasion Condition: Good Instructions: Abrasion (ED), Medical Clearance for Substance Abuse Treatment ( ED) Referrals: NONE *PRIMARY CARE P,. [Primary Care Provider] - As per Instructions
[2018-06-01 12:47] VITALS: BP 150/89
== END 2018-06-01 13:21 | disposition home or self-care (01) ==
LOC: EDUNIT#
DX: Z02.89 Encounter for other administrative examinations (principal); S30.811A Abrasion of abdominal wall, initial encounter; W20.8XXA Other cause of strike by thrown, projected or falling object, initial encounter; Y92.019 Unspecified place in single-family (private) house as the place of occurrence of the external cause; Y93.9 Activity, unspecified